=== PATIENT | female | born 1950 | race American Indian/Alaskan Native ===

== ENCOUNTER 2017-09-01 06:50 | Day surgery (SDC) | payer MEDICARE, OTHER ==
[~2017-09-01] VITALS: Ht 154.9 cm; Wt 63.0 kg
[~2017-09-01 06:50] MED LIST: ALENDRONATE SOD70 MG PO; CALCIUM500 MG PO; CLOPIDOGREL75 MG PO; ISOSORBIDE MONO60 MG PO; LISINOPRIL40 MG PO; LOVASTATIN40 MG PO; NITROSTAT0.4 MG SL; OXYCODONE HCL E10 MG PO; QUETIAPINE FUM400 MG PO; VITAMIN D2000 UNI1 PO
--- NOTE | 2017-09-01 10:25 | NUR ---
09/01/17 1025 Letty Bowman 0938 PT RESTING AT THIS TIME, WAKES WITH VERBAL STIMULATION
--- NOTE | 2017-09-02 06:21 | OR ---
[facility] [address], [place] [address] Signed DATE OF OPERATION: 09/01/2017 SURGEON: Dee Diaz MD PREOPERATIVE DIAGNOSES: 1. Right colectomy for a polyp in her mid 50s in 2011. 2. Additional polyps removed in 2011. POSTOPERATIVE DIAGNOSES: 1. Polyps in the distal transverse colon, 110, 85, 65, 62, 10, and 8 cm. 2. Internal hemorrhoids. PROCEDURE: Colonoscopy with snare polypectomy at 10 cm and hot biopsy. ESTIMATED BLOOD LOSS: None. INDICATIONS: Emilee is a 67-year-old female, who had a right colectomy in her mid 50s in 2011, up in [place], [place]. Later that year, I did a colonoscopy and she had additional polyps removed. She returns now for a followup colonoscopy. She does have a tattoo in the colon next to the ileocolonic anastomosis in the proximal transverse colon. Otherwise, there is no family history of colon cancer or polyps. She told me she has lost weight and is now off her diabetic medications. She says she is feeling great and her bowel movements are good. In the office, I gave her a pamphlet on colonoscopy and we looked at that together along with the risks including, but not limited to gas bloating, crampy abdominal pain, bleeding, perforation requiring surgery, and missed diagnosis. We also discussed the need for IV conscious sedation. She had expressed understanding and wished to proceed. She has a significant past medical history and requires daily oxycodone for pain control. As a result, we had an anesthesia provider help us with increased monitoring sedation. PROCEDURE NOTE: Emilee was taken into our endoscopy suite and placed in the left lateral decubitus position. She was given IV sedation with propofol per nurse poultry and fish butcher. A digital rectal exam was performed and this was unremarkable. The adult colonoscope was introduced and advanced all around into the proximal transverse colon under direct visualization of camera. Unfortunately, her prep was slightly below moderate. She had several areas of liquid particulate stool matter, I could not quite suction out Electronically Signed By: DEE DIAZ MD 09/02/17 0621 PATIENT NAME: EMILEE MCNEAL OPERATIVE REPORT DATE OF : 52 PHYSICIAN: DEE DIAZ MD REPORT #: [id number] REPORT IS CONFIDENTIAL AND NOT TO BE RELEASED WITHOUT AUTHORIZATION [facility] [address], [place] [address] Signed completely. We could see the tattoo next to the anastomosis. It was quite healthy. No stricture. No evidence of any cancer or polyps at the anastomosis. The scope was then slowly withdrawn. The above-mentioned polyps were removed with a hot biopsy forceps. We did need her snare back at 10 cm. In the rectum, the scope had been retroflexed and we can see that she has moderate internal hemorrhoid columns. After this, the gas was suctioned out and colonoscope removed. Emilee tolerated the procedure quite well. RECOMMENDATIONS: I will see Emilee back in my office in 7 to 14 days to review her results. She needs to consider some additional bowel prep in the future and we should consider a followup colonoscopy somewhere between 6 and 18 months. Dee Diaz MD ALB/MODL /[id number] cc: [facility] Electron[facility] Signed By: DEE DIAZ MD 09/02/17 0621 PATIENT NAME: EMILEE MCNEAL OPERATIVE REPORT DATE OF : 52 PHYSICIAN: DEE DIAZ MD REPORT #: [id number] REPORT IS CONFIDENTIAL AND NOT TO BE RELEASED WITHOUT AUTHORIZATION
== END 2017-09-01 10:16 | disposition home or self-care (01) ==
LOC: OPS 06:50 → DS 06:50
PROVIDERS: Colon & Rectal Surgery
PROC: 0DBE8ZX Excision of Large Intestine, Via Natural or Artificial Opening Endoscopic, Diagnostic (ICD-10-PCS; 2017-09-01)
PROC: 0DBL8ZX Excision of Transverse Colon, Via Natural or Artificial Opening Endoscopic, Diagnostic (ICD-10-PCS; 2017-09-01)
PROC: 0DBP8ZX Excision of Rectum, Via Natural or Artificial Opening Endoscopic, Diagnostic (ICD-10-PCS; principal; 2017-09-01 08:45)
DX: Z12.11 Encounter for screening for malignant neoplasm of colon (principal); D12.8 Benign neoplasm of rectum; D12.3 Benign neoplasm of transverse colon; D12.6 Benign neoplasm of colon, unspecified; I25.10 Atherosclerotic heart disease of native coronary artery without angina pectoris; K64.8 Other hemorrhoids; K62.1 Rectal polyp; I25.2 Old myocardial infarction; I10 Essential (primary) hypertension; J44.9 Chronic obstructive pulmonary disease, unspecified; G47.33 Obstructive sleep apnea (adult) (pediatric); K21.9 Gastro-esophageal reflux disease without esophagitis; E78.00 Pure hypercholesterolemia, unspecified; Z85.51 Personal history of malignant neoplasm of bladder; F32.9 Major depressive disorder, single episode, unspecified; E11.9 Type 2 diabetes mellitus without complications; M81.0 Age-related osteoporosis without current pathological fracture; F90.9 Attention-deficit hyperactivity disorder, unspecified type; F17.210 Nicotine dependence, cigarettes, uncomplicated; Z86.010 Personal history of colon polyps; Z90.49 Acquired absence of other specified parts of digestive tract; Z86.73 Personal history of transient ischemic attack (TIA), and cerebral infarction without residual deficits; Z98.49 Cataract extraction status, unspecified eye; Z90.710 Acquired absence of both cervix and uterus; Z88.0 Allergy status to penicillin; Z88.2 Allergy status to sulfonamides; Z79.899 Other long term (current) drug therapy; Z98.890 Other specified postprocedural states
CPT/HCPCS: 88305; 99156; 99157; J2704

== ENCOUNTER 2021-01-08 13:11 | Emergency (ER) | payer MEDICARE, OTHER ==
[~2021-01-08] VITALS: Ht 154.9 cm; Wt 66.2 kg
== END 2021-01-08 15:35 | disposition home or self-care (01) ==
LOC: ED 13:11
DX: U07.1 COVID-19 (principal); F17.200 Nicotine dependence, unspecified, uncomplicated; Z88.0 Allergy status to penicillin; Z88.6 Allergy status to analgesic agent; Z79.899 Other long term (current) drug therapy
CPT/HCPCS: 99283; C9803; U0003

== ENCOUNTER 2021-12-28 22:43 | Emergency (ER) | payer MEDICARE, OTHER ==
[~2021-12-28] VITALS: Ht 154.9 cm; Wt 66.2 kg
== END 2021-12-29 00:43 | disposition home or self-care (01) ==
LOC: ED 22:43
DX: M79.89 Other specified soft tissue disorders (principal); J44.9 Chronic obstructive pulmonary disease, unspecified; F17.200 Nicotine dependence, unspecified, uncomplicated; Z88.0 Allergy status to penicillin; Z88.6 Allergy status to analgesic agent
CPT/HCPCS: 36415; 80053; 85025; 99283

== ENCOUNTER 2022-11-26 11:59 | Inpatient (IN) | payer MEDICARE, OTHER ==
[~2022-11-26] VITALS: Ht 154.9 cm; Wt 58.2 kg
--- OUTSIDE RECORDS SUMMARY | 2022-11-26 12:08 | XMS ---
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 Care History Medical/Surgical 12/29/2021 [facility] - PATIENT IS [facility] ELIGIBLE, \T\nbsp; PLEASE REFER PATIENT TO [facility] FOR NON EMERGENT MEDICAL NEEDS. \T\nbsp; [facility] CAN SEE PATIENTS SAME DAY FOR APTS IF PATIENT CALLS FIRST THING IN THE MORNING. E.D. VISIT COUNT (12 MO.) [address] [employer] [address] [employer] TOTAL 3 NOTE: Visits indicate total known visits. ED/UCC VISIT TRACKING (12 MO.) 11/26/2022 12:01 [facility] TYPE: Emergency COMPLAINT: - DIFFICULTY BREATHING, COUGH 09/12/2022 17:38 [facility] OR TYPE: Emergency DIAGNOSES: - LEG PAIN - Other mechanical complication of unspecified cardiac and vascular devices and implants, initial encounter - Pain in right leg 12/28/2021 22:44 [facility] [place] TYPE: Emergency COMPLAINT: - FEET SWELLING DIAGNOSES: - Nicotine dependence, unspecified, uncomplicated - Allergy status to analgesic agent - Chronic obstructive pulmonary disease, unspecified - Allergy status to penicillin - Other specified soft tissue disorders INPATIENT VISIT TRACKING (12 MO.) 09/13/2022 02:48 [facility] OR TYPE: Medical Surgical COMPLAINT: - Right leg pains DIAGNOSES: - Right leg pains - Hx COPD [email or web address]
[2022-11-26] MEDS ORDERED: ELIQUIS5 MG PO (12:33)
[2022-11-26 17:00] VITALS: BP 112/61
[2022-11-26] MEDS ORDERED: CLOPIDOGREL75 MG PO (17:20)
[2022-11-26] MEDS ORDERED: VENTOLIN HFA18 GM INH (17:20)
[2022-11-26 21:20] VITALS: BP 108/60
[2022-11-27 02:16] VITALS: BP 102/58
[2022-11-27 05:22] VITALS: BP 121/69
[2022-11-27 14:17] VITALS: BP 106/63
[2022-11-27 18:03] VITALS: BP 108/63
[2022-11-27 20:28] VITALS: BP 119/69
[2022-11-28 05:17] VITALS: BP 105/60
--- NOTE | 2022-11-28 07:35 | EKG ---
[facility] [address] 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
[2022-11-28 09:53] VITALS: BP 103/57
[2022-11-28 13:18] VITALS: BP 102/55
[2022-11-28 17:31] VITALS: BP 112/61
[2022-11-28 20:56] VITALS: BP 121/63
[2022-11-29 06:03] VITALS: BP 99/60
[2022-11-29 09:50] VITALS: BP 113/65
[2022-11-29 14:23] VITALS: BP 108/58
[2022-11-29 17:30] VITALS: BP 113/63
[2022-11-29 19:55] VITALS: BP 112/65
[2022-11-30 05:38] VITALS: BP 125/80
[2022-11-30 09:28] VITALS: BP 127/68
[2022-11-30 13:03] VITALS: BP 104/74
[2022-11-30 18:23] VITALS: BP 111/64
[2022-11-30 20:31] VITALS: BP 100/59
[2022-12-01 05:19] VITALS: BP 125/66
[2022-12-01 09:46] VITALS: BP 105/64
[2022-12-01 14:31] VITALS: BP 111/64
[2022-12-01 18:03] VITALS: BP 111/78
[2022-12-01 19:55] VITALS: BP 109/61
[2022-12-02 05:48] VITALS: BP 118/78
[2022-12-02 09:52] VITALS: BP 110/68
[2022-12-02 13:39] VITALS: BP 106/68
[2022-12-02 18:09] VITALS: BP 119/75
[2022-12-02 21:12] VITALS: BP 119/95
[2022-12-03 05:14] VITALS: BP 132/75
[2022-12-03 09:30] VITALS: BP 119/67
[2022-12-03] MEDS ORDERED: IPRATROPIU0.2 MG/1 M INH (13:10)
[2022-12-03] MEDS ORDERED: PREDNISONE20 MG PO (13:11)
[2022-12-03] MEDS ORDERED: MUCINEX600 MG PO (13:11)
[2022-12-03] MEDS ORDERED: LASIX40 MG PO (13:12)
[2022-12-03 13:36] VITALS: BP 115/71
== END 2022-12-03 15:30 | disposition home or self-care (01) | DRG 190 ==
LOC: ED 11:59 → MS 16:09
PROVIDERS: ADMIT Internal Medicine; ATTEND Family Medicine
DX: J44.1 Chronic obstructive pulmonary disease with (acute) exacerbation (principal); I50.23 Acute on chronic systolic (congestive) heart failure; Z20.822 Contact with and (suspected) exposure to COVID-19; I73.9 Peripheral vascular disease, unspecified; E21.3 Hyperparathyroidism, unspecified; I25.10 Atherosclerotic heart disease of native coronary artery without angina pectoris; M81.0 Age-related osteoporosis without current pathological fracture; M54.31 Sciatica, right side; F17.210 Nicotine dependence, cigarettes, uncomplicated; Z95.5 Presence of coronary angioplasty implant and graft; Z95.828 Presence of other vascular implants and grafts; Z99.81 Dependence on supplemental oxygen; Z88.0 Allergy status to penicillin; Z88.6 Allergy status to analgesic agent; Z90.710 Acquired absence of both cervix and uterus; Z85.51 Personal history of malignant neoplasm of bladder; Z85.43 Personal history of malignant neoplasm of ovary; Z79.02 Long term (current) use of antithrombotics/antiplatelets; Z98.890 Other specified postprocedural states; Z79.899 Other long term (current) drug therapy
CPT/HCPCS: 36415; 71045; 80048; 80053; 82803; 83735; 83880; 83970; 84484; 85025; 87502; 93005; 93010; 93306; 94640; 94660; 94760; 94761; 94762; 99406; A9270; C9803; J0456; J1940; J2930; J7060; J7512; U0003

== ENCOUNTER 2023-09-13 16:14 | Emergency (ER) | payer MEDICARE, OTHER ==
[~2023-09-13] VITALS: Ht 154.9 cm; Wt 65.8 kg
[~2023-09-13 16:14] MED LIST changes: +ELIQUIS5 MG PO; +IPRATROPIU0.2 MG/1 M INH; +LASIX40 MG PO; +MUCINEX600 MG PO; +PREDNISONE20 MG PO; +VENTOLIN HFA18 GM INH
[2023-09-13 20:54] VITALS: BP 138/77
== END 2023-09-13 20:55 | disposition home or self-care (01) ==
LOC: ED 16:14
DX: L03.114 Cellulitis of left upper limb (principal); B95.62 Methicillin resistant Staphylococcus aureus infection as the cause of diseases classified elsewhere; J44.9 Chronic obstructive pulmonary disease, unspecified; I50.9 Heart failure, unspecified; F17.200 Nicotine dependence, unspecified, uncomplicated; Z88.0 Allergy status to penicillin; Z88.8 Allergy status to other drugs, medicaments and biological substances; Z79.01 Long term (current) use of anticoagulants; Z79.899 Other long term (current) drug therapy
CPT/HCPCS: 99283; A9270

== ENCOUNTER 2024-12-20 03:20 | Emergency (ER) | payer MEDICARE, OTHER ==
[~2024-12-20] VITALS: Ht 157.5 cm; Wt 61.0 kg
[~2024-12-20 03:20] MED LIST changes: +BACTRIM DS TAB1 EACH PO; +HIBICLENS118 ML TOP
[2024-12-20] MEDS ORDERED: HYDROCODON-ACE1 EA10 PO (04:52)
[2024-12-20] MEDS ORDERED: DOXYCYCLINE HY100 MG PO (04:52)
[2024-12-20 05:04] VITALS: BP 145/80
--- NOTE | 2024-12-20 07:41 | EKG ---
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
== END 2024-12-20 05:04 | disposition home or self-care (01) ==
LOC: ED 03:20
DX: R05.9 Cough, unspecified (principal); J45.909 Unspecified asthma, uncomplicated; I50.9 Heart failure, unspecified; F17.200 Nicotine dependence, unspecified, uncomplicated
CPT/HCPCS: 71045; 93005; 93010; 99285-25